=== PATIENT | female | born 1965 | race Two or more races ===

== ENCOUNTER 2017-08-15 15:57 | Outpatient (CLI) | payer OTHER | END 2017-08-15 16:04 | disposition home or self-care (01) | LOC: RAD 15:57 | DX: S93.402A Sprain of unspecified ligament of left ankle, initial encounter (principal) ==

== ENCOUNTER 2018-07-23 08:19 | Outpatient (CLI) | payer OTHER | END 2018-07-23 10:43 | disposition home or self-care (01) | LOC: RAD 501 08:19 | DX: M54.5 Low back pain (principal); M25.511 Pain in right shoulder ==

== ENCOUNTER 2019-05-10 07:57 | Outpatient (CLI) | payer OTHER | END 2019-05-10 07:59 | disposition home or self-care (01) | LOC: SONOGRAMA 07:57 → MAMO-SONO 09:45 | DX: R13.19 Other dysphagia (principal) ==

== ENCOUNTER 2019-05-10 08:38 | Outpatient (CLI) | payer OTHER | END 2019-05-10 15:00 | disposition home or self-care (01) | LOC: LAB 08:38 | DX: J11.1 Influenza due to unidentified influenza virus with other respiratory manifestations (principal) ==

== ENCOUNTER 2021-12-03 13:09 | Outpatient (CLI) | payer OTHER | END 2021-12-03 13:21 | disposition home or self-care (01) | LOC: RAD 13:09 | PROVIDERS: ATTEND Physical Medicine & Rehabilitation | DX: M54.2 Cervicalgia (principal) ==

== ENCOUNTER 2022-03-01 08:09 | Outpatient (CLI) | payer OTHER | END 2022-03-01 08:20 | disposition home or self-care (01) | LOC: MAMO-SONO 08:09 | PROVIDERS: ATTEND Obstetrics & Gynecology Gynecology | DX: Z12.31 Encounter for screening mammogram for malignant neoplasm of breast (principal); N64.4 Mastodynia ==

== ENCOUNTER 2022-06-27 10:52 | Emergency (ER) | payer OTHER ==
[~2022-06-27] VITALS: Ht 163.8 cm; Wt 56.2 kg
[2022-06-27] MEDS ORDERED: ANTACID168 MG (11:32)
[2022-06-27] MEDS ORDERED: TUSSIN DM LIQU118 ML PO (13:30)
[2022-06-27] MEDS ORDERED: CLARITIN-D 121 EACH PO (13:30)
== END 2022-06-27 15:20 | disposition home or self-care (01) ==
LOC: ER 10:52
DX: U07.1 COVID-19 (principal); Z88.5 Allergy status to narcotic agent